=== PATIENT | female | born 1975 | race Caucasian/White ===

== ENCOUNTER → 2023-04-28 10:47 | Outpatient (REF) | payer BC, SELFPAY | LOC: RAD 10:47 | PROVIDERS: ATTENDING PHYSICIAN Internal Medicine Hematology & Oncology; FAMILY PHYSICIAN Internal Medicine | DX: I80.02 Phlebitis and thrombophlebitis of superficial vessels of left lower extremity (principal) | CPT/HCPCS: 93971 ==

== ENCOUNTER → 2023-07-04 11:14 | Outpatient (REF) | payer BC, SELFPAY | LOC: RAD 11:14 | PROVIDERS: ATTENDING PHYSICIAN Nurse Practitioner Family; FAMILY PHYSICIAN Internal Medicine | DX: M79.89 Other specified soft tissue disorders (principal); Z86.718 Personal history of other venous thrombosis and embolism; M79.671 Pain in right foot | CPT/HCPCS: 93971 ==

== ENCOUNTER → 2023-11-10 11:56 | Outpatient (REF) | payer BC, SELFPAY | LOC: HWWDC 11:56 | PROVIDERS: ATTENDING PHYSICIAN Obstetrics & Gynecology; FAMILY PHYSICIAN Internal Medicine | DX: Z12.31 Encounter for screening mammogram for malignant neoplasm of breast (principal) | CPT/HCPCS: 77063; 77067 ==

== ENCOUNTER → 2024-04-12 09:54 | Outpatient (REF) | payer BC, SELFPAY | LOC: WDC 09:54 | PROVIDERS: ATTENDING PHYSICIAN Internal Medicine | DX: R92.2 Inconclusive mammogram (principal) | CPT/HCPCS: 76641 ==

== ENCOUNTER → 2024-12-04 14:54 | Outpatient (REF) | payer BC, SELFPAY | LOC: HWWDC 14:54 | PROVIDERS: ATTENDING PHYSICIAN Obstetrics & Gynecology; FAMILY PHYSICIAN Internal Medicine | DX: Z12.31 Encounter for screening mammogram for malignant neoplasm of breast (principal) | CPT/HCPCS: 77063; 77067 ==